=== PATIENT | female | born 1970 | race Caucasian/White ===

== ENCOUNTER 2019-09-28 11:59 | Observation (INO) | payer SELFPAY ==
[2019-09-28 12:57] LABS: MEAN CORPUSCULAR HEMOGLOBIN 29.7 pg (27.0-33.4); MEAN CORPUSCULAR HGB CONC 30.3 g/dL (32.0-36.0); MEAN CORPUSCULAR VOLUME 98 fl (80-97); RED BLOOD COUNT 1.05 10^6/uL (3.72-5.28); RED CELL DISTRIBUTION WIDTH 17.5 % (11.5-14.0); WHITE BLOOD COUNT 12.4 10^3/uL (4.0-10.5)
[2019-09-28] MEDS ORDERED: NORMAL SALINE 1000 ML 1,000 ML IV ONE (13:05)
[2019-09-28] MEDS ORDERED: MEDROXYPROGESTERONE ACET INJ 150 MG/1 ML VIAL IM ONE (13:09)
--- NOTE | 2019-09-28 13:11 | ER Document Report ---
ED GI/ - General Chief Complaint: Vaginal Bleeding Stated Complaint: VAGINAL BLEEDING Time Seen by Provider: 09/28/19 12:36 Mode of Arrival: Medic Information source: Patient Notes: Patient is a 49-year-old female patient presented to the emergency department chief complaint vaginal bleeding. Patient reports intermittent vaginal bleeding over the last 6 weeks. Patient reports over the last 2 days it has gotten severe. She states she passed out this morning. 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 She denies any known history of FA[employer] L[employer]INEER problems. She does have a history of asthma, allergies, bipolar, depression, panic attacks. EMS reports they found her on the toilet with the toilet full of blood. She denies any chest pain or shortness of breath. She states that she feels so weak she feels like she is going to . - Related Data Allergies/Adverse Reactions: NSAIDS (Non-Steroidal Anti-Inflamma Allergy (Severe, Verified 09/28/19 12:30) ciprofloxacin [From Cipro] Allergy (Verified 09/28/19 12:30) Sulfa (Sulfonamide Antibiotics) Adverse Reaction (Verified 09/28/19 12:30) Past Medical History - General Information source: Patient - Social History Smoking Status: Never Smoker Family History: Reviewed & Not Pertinent - She does not Patient has suicidal ideation: No Patient has homicidal ideation: No Pulmonary Medical History: Reports: Hx Asthma Psychiatric Medical History: Reports: Hx Anxiety, Hx Bipolar Disorder, Other - Panic disorder Surgical Hx: Negative Review of Systems - Review of Systems Constitutional: Malaise, Weakness Cardiovascular: No symptoms reported Respiratory: No symptoms reported Gastrointestinal: Nausea Genitourinary: No symptoms reported Female Genitourinary: Vaginal bleeding - Heavy Musculoskeletal: No symptoms reported Skin: No symptoms reported Neurological/Psychological: Anxiety Physical Exam - Vital signs Vitals: Temp Pulse Resp BP Pulse Ox 98.1 F 126 H 22 H 104/88 H 100 09/28/19 12:14 09/28/19 12:14 09/28/19 12:14 09/28/19 12:14 09/28/19 12:14 - Notes Notes: PHYSICAL EXAMINATION: GENERAL: Ill-appearing. HEAD: Atraumatic, normocephalic. EYES: Pupils equal round and reactive to light, extraocular movements intact, conjunctiva are normal. ENT: Nares patent, oropharynx clear without exudates. Moist mucous membranes. NECK: Normal range of motion, supple without lymphadenopathy LUNGS: Breath sounds clear to auscultation bilaterally and equal. No wheezes rales or rhonchi. HEART: Tachycardic ABDOMEN: Soft, nontender, nondistended abdomen. No guarding, no rebound. No masses appreciated. Female : No CVA tenderness. Musculoskeletal: Normal range of motion, no pitting or edema. No cyanosis. NEUROLOGICAL: Cranial nerves grossly intact. Normal speech. Normal sensory, motor exams PSYCH: Normal mood, normal affect. SKIN: Pale Course - Re-evaluation Re-evalutation: Lab called with preliminary hemoglobin of 3.1, hematocrit 10.3, orders placed for emergency release PRBCs x2 units. Pelvic exam was performed, patient has l arge clots in the vaginal vault, most of the clots were removed, small trickle of blood coming from the cervix. 09/28/19 13:11 Dr. Turpin consulted, she recommends giving patient Depo-Provera 300 mg. 09/28/19 14:00 Multiple re-evaluations have been done on this patient. She has continued to have blood transfusions infusing. Currently heart rate is down to 91, blood pressure holding steady at 119/67. Patient remains alert, oriented, able to answer all questions. She continues to be very anxious about her state of health. 09/28/19 15:15 Patient accepted for admission by Dr. Turpin. - Vital Signs Vital signs: Temp Pulse Resp BP Pulse Ox 98.2 F 100 19 107/75 100 09/28/19 14:25 09/28/19 14:25 09/28/19 14:31 09/28/19 14:31 09/28/19 14:31 - Laboratory Result Diagrams: 09/28/19 12:25 09/28/19 12:25 Laboratory results interpreted by me: 09/28/19 09/28/19 09/28/19 12:25 12:25 12:25 WBC 12.4 H RBC 1.05 L Hgb 3.1 L* Hct 10.3 L* MCV 98 H MCHC 30.3 L RDW 17.5 H Seg Neuts % (Manual) 96 H Lymphocytes % (Manual) 1 L Abs Neuts (Manual) 11.9 H Abs Lymphs (Manual) 0.1 L APTT Sodium 135.3 L Glucose 127 H Alkaline Phosphatase 37 L Total Protein 5.3 L Albumin 2.9 L Viola Crossmatch See Detail 09/28/19 09/28/19 12:55 12:55 WBC RBC Hgb Hct MCV MCHC RDW Seg Neuts % (Manual) Lymphocytes % (Manual) Abs Neuts (Manual) Abs Lymphs (Manual) APTT 20.8 L Sodium Glucose Alkaline Phosphatase Total Protein Albumin Viola 0.4 L Crossmatch Discharge - Discharge Clinical Impression: Vaginal bleeding Fibroid, uterine Qualifiers: Uterine leiomyoma location: unspecified location Qualified Code(s): D25.9 - Leiomyoma of uterus, unspecified Anemia Qualifiers: Anemia type: unspecified type Qualified Code(s): D64.9 - Anemia, unspecified Condition: Fair Disposition: ADMITTED INPATIENT Admitting Provider: [facility] - Dr. Turpin Unit Admitted: Post
[2019-09-28 13:17] LABS: ALBUMIN 2.9 g/dL (3.5-5.0); ALKALINE PHOSPHATASE 37 U/L (38-126); ANION GAP 9 (5-19); ASPARTATE AMINO TRANSFERASE 14 U/L (14-36); BILIRUBIN,DIRECT 0.1 mg/dL (0.0-0.4); BILIRUBIN,TOTAL 0.2 mg/dL (0.2-1.3); BLOOD UREA NITROGEN 9 mg/dL (7-20); CALCIUM 8.4 mg/dL (8.4-10.2); CARBON DIOXIDE 23 mmol/L (22-30); CHLORIDE 103 mmol/L (98-107); GLUCOSE 127 mg/dL (75-110); POTASSIUM 3.7 mmol/L (3.6-5.0); TOTAL PROTEIN 5.3 g/dL (6.3-8.2)
[2019-09-28 13:26] LABS: PROTHROMBIN TIME 14.2 SEC (11.4-15.4)
[2019-09-28 13:27] LABS: PARTIAL THROMBOPLASTIN TIME 20.8 SEC (23.5-35.8)
[2019-09-28 13:29] LABS: ABSOLUTE LYMPHOCYTES# (MANUAL) 0.1 10^3/uL (0.5-4.7); ABSOLUTE MONOCYTES # (MANUAL) 0.4 10^3/uL (0.1-1.4); BASOPHILS % (MANUAL) 0 % (0-2); EOSINOPHILS % (MANUAL) 0 % (0-6); LYMPHOCYTES % (MANUAL) 1 % (13-45); MONOCYTES % (MANUAL) 3 % (3-13); SEGMENTED NEUTROPHILS % (MAN) 96 % (42-78); TOTAL CELLS COUNTED 100
[2019-09-28 13:32] LABS: ANISOCYTOSIS 1+; HYPOCHROMASIA 1+; POLYCHROMASIA 1+; TEAR DROP CELLS 1+
[2019-09-28 13:33] LABS: TOXIC GRANULATION SLIGHT
[2019-09-28 13:34] LABS: PLATELET COMMENT ADEQUATE
[2019-09-28 13:36] LABS: HEMOGLOBIN 3.1 g/dL (12.0-15.5)
[2019-09-28 13:37] LABS: HEMATOCRIT 10.3 % (36.0-47.0)
[2019-09-28 13:38] LABS: PLATELET COUNT 356 10^3/uL (150-450)
[2019-09-28] MEDS: NORMAL SALINE 250 ML IV PRN ×4 (13:50→15:25)
--- NOTE | 2019-09-28 14:35 | RADIOLOGY REPORT (SQ) ---
EXAM DESCRIPTION: U/S NON-OB PELVIS TV W/O DOP COMPLETED DATE/TIME: 09/28/2019 2:10 pm REASON FOR STUDY: vag bleed COMPARISON: None. TECHNIQUE: Dynamic and static grayscale images acquired of the pelvis via transvaginal approach and recorded on PACS. Additional selected color Doppler and spectral images recorded. LIMITATIONS: None. FINDINGS: UTERUS: Contour normal. No mass. ENDOMETRIAL STRIPE: No focal or generalized thickening. No masses. CERVIX: There is a 4.4 x 4.3 x 4.0 cm mass in the lower urine segment upper cervix. This is heteroge neous most likely represents a fibroid. There is vascular flow demonstrated. RIGHT OVARY AND DOPPLER: Normal size. No worrisome masses. Normal arterial vascular flow without evid ence for torsion. There is a 2.7 x 2.7 x 3.2 cm simple cyst. LEFT OVARY AND DOPPLER: Ovary not visualized. FREE FLUID: None noted. OTHER: No other significant finding. MEASUREMENTS: UTERUS: 8.1 x 4.3 x 3.9 cm. ENDOMETRIAL STRIPE: 4.3 mm. RIGHT OVARY: 4.4 x 4.4 x 3.3 cm. LEFT OVARY: Not visualized. IMPRESSION: 4.4 x 4.3 x 4.0 cm mass in the lower ureter segment upper cervix. This could represent fibroid. Other etiologies cannot be excluded. TECHNICAL DOCUMENTATION: JOB ID: [id number] [employer]- All Rights Reserved Rev Reading location - IP/workstation name: [email or web address]
[2019-09-28] MEDS ORDERED: NORMAL SALINE 250 ML IV ONE (14:49)
[2019-09-28 16:57] LABS: APPEARANCE,URINE CLEAR; BILIRUBIN,URINE NEGATIVE (NEGATIVE); COLOR,URINE YELLOW; GLUCOSE, URINE NEGATIVE (NEGATIVE); KETONES,URINE NEGATIVE (NEGATIVE); LEUKOCYTE ESTERASE,URINE MODERATE (NEGATIVE); NITRITE,URINE NEGATIVE (NEGATIVE); PROTEIN,URINE NEGATIVE (NEGATIVE); URINE SPECIFIC GRAVITY 1.008; UROBILINOGEN,URINE NEGATIVE mg/dL (<2.0)
[2019-09-28] MEDS ORDERED: TRAMADOL HCL 50 MG TABLET PO PRN (19:44)
--- NOTE | 2019-09-28 19:44 | PDOC H&P ---
History of Present Illness Admission Date/PCP: 09/28/19 15:46 Patient complains of: Heavy vaginal bleeding for several weeks History of Present Illness: NII SCHMIDT is a 49 year old G0 presented to [facility] ED complaining of prolonged, heavy vaginal bleeding. Patient stated that she passed out today. She called EMS, who found her sitting on the toilet. The toilet was full of blood. This patient gives history of having regular menstrual cycles until approximately 2017. Her periods remained regular but became very heavy. She had a history of having a very heavy menstrual cycle, then skipping a few periods and then having another very heavy menstrual cycle. She started taking iron and felt better. On August 19, the bleeding started and has not stopped yet. Patient stated that she used OCPs as a teenager. She has not had a Pap smear since 2006. She subsequently underwent a pelvic ultrasound which showed a 4 x 4 x 4 cm fibroid in the lower uterine segment. She also has a 2.7 x 2.7 x 3.2 cm right, simple ovarian cyst Past Medical History LMP: August 19 Gynecological Infection: No Gynecological History Note: Last Pap smear 2006 Pulmonary Medical History: Reports: Asthma Psychiatric Medical History: Reports: Bipolar Disorder, Other - Panic disorder Past Surgical History Past Surgical History: Reports: None Social History Smoking Status: Never Smoker Electronic Cigarette use?: No Frequency of Alcohol Use: Occasional Hx Recreational Drug Use: No Family History Family History: Reviewed & Not Pertinent - She does not Parental Family History Reviewed: Yes Children Family History Reviewed: NA Sibling(s) Family History Reviewed.: NA Medication/Allergy Home Medications: Albuterol Sulfate [Proair HFA Inhalation Aerosol 8.5 gm MDI] 1 inh PO Q6HP PRN 09/28/19 Fluticasone Propionate [Flonase Nasal [place] 50 Mcg/[place] 16 gm] 1 spray NASL DAILY 09/28/19 [place] Carbonate [[place] Carbonate ER 450 mg Tablet] 450 mg PO BID 09/28/19 Mometasone Furoate [Asmanex Hfa] 13 gm IH QHS 09/28/19 Allergies/Adverse Reactions: NSAIDS (Non-Steroidal Anti-Inflamma Allergy (Severe, Verified 09/28/19 12:30) ciprofloxacin [From Cipro] Allergy (Verified 09/28/19 12:30) Sulfa (Sulfonamide Antibiotics) Adverse Reaction (Verified 09/28/19 12:30) Review of Systems Constitutional: PRESENT: as per HPI Cardiovascular: PRESENT: dyspnea on exertion, other - Palpitations Respiratory: PRESENT: dyspnea Gastrointestinal: PRESENT: other - Cramping Psychiatric: PRESENT: other - Bipolar Physical Exam - Physical Exam Vital Signs: Temp Pulse Resp BP Pulse Ox 98.4 F 90 19 123/73 100 09/28/19 15:20 09/28/19 15:30 09/28/19 16:33 09/28/19 16:33 09/28/19 16:33 Intake & Output 09/27/19 09/28/19 09/29/19 06:59 06:59 06:59 Intake Total 3450 Balance 3450 Weight 81.647 kg General appearance: PRESENT: no acute distress Respiratory exam: PRESENT: clear to auscultation vinny Cardiovascular exam: PRESENT: RRR, tachycardia GI/Abdominal exam: PRESENT: normal bowel sounds, soft Extremities exam: ABSENT: calf tenderness, clubbing, full ROM, joint swelling, pedal edema, tenderness, +1 edema, +2 edema, other - Gynecological Exam Vagina: normal, other - Bleeding is slowing down Result Laboratory Results: 09/28/19 12:25 09/28/19 12:25 09/28/19 09/28/19 09/28/19 12:25 12:25 12:25 WBC 12.4 H RBC 1.05 L Hgb 3.1 L* Hct 10.3 L* MCV 98 H MCH 29.7 MCHC 30.3 L RDW 17.5 H Plt Count 356 Seg Neutrophils % Not Reportable Sodium 135.3 L Potassium 3.7 Chloride 103 Carbon Dioxide 23 Anion Gap 9 BUN 9 Creatinine 0.68 Est GFR ( Amer) > 60 Glucose 127 H Calcium 8.4 Total Bilirubin 0.2 AST 14 Alkaline Phosphatase 37 L Total Protein 5.3 L Albumin 2.9 L Urine Color Urine Appearance Urine pH Ur Specific [place] Urine Protein Urine Glucose (UA) Urine Ketones Urine Blood Urine Nitrite Ur Leukocyte Esterase Urine WBC (Auto) Urine RBC (Auto) Blood Type O POSITIVE Antibody Screen NEGATIVE 09/28/19 16:22 WBC RBC Hgb Hct MCV MCH MCHC RDW Plt Count Seg Neutrophils % Sodium Potassium Chloride Carbon Dioxide Anion Gap BUN Creatinine Est GFR ( Amer) Glucose Calcium Total Bilirubin AST Alkaline Phosphatase Total Protein Albumin Urine Color YELLOW Urine Appearance CLEAR Urine pH 6.0 Ur Specific [place] 1.008 Urine Protein NEGATIVE Urine Glucose (UA) NEGATIVE Urine Ketones NEGATIVE Urine Blood LARGE H Urine Nitrite NEGATIVE Ur Leukocyte Esterase MODERATE H Urine WBC (Auto) 18 Urine RBC (Auto) 142 Blood Type Antibody Screen Impressions: Transvaginal US 09/28/19 13:09 IMPRESSION: 4.4 x 4.3 x 4.0 cm mass in the lower ureter segment upper cervix. This could represent fibroid. Other etiologies cannot be excluded. Assessment & Plan - Diagnosis (1) Irregular menses Is this a current diagnosis for this admission?: Yes (2) Anemia Qualifiers: Anemia type: iron deficiency Iron deficiency anemia type: chronic blood loss Qualified Code(s): D50.0 - Iron deficiency anemia secondary to blood loss (chronic) (3) Fibroid, uterine Qualifiers: Uterine leiomyoma location: intramural Qualified Code(s): D25.1 - Intramural leiomyoma of uterus (4) Vaginal bleeding Is this a current diagnosis for this admission?: Yes (5) Asthma Qualifiers: Asthma severity: moderate Is this a current diagnosis for this admission?: Yes (6) Bipolar 1 disorder with moderate dimas Is this a current diagnosis for this admission?: Yes - Time Time Spent: 30 to 50 Minutes Critical Time spent with patient: 15-24 minutes Medications reviewed and adjusted accordingly: Yes Anticipated discharge: Home Within: within 24 hours - Inpatient Certification I certify that my determination is in accordance with my understanding of Medicare's requirements for reasonable and necessary INPATIENT services [42 CFR 412.3e].: Yes Medical Necessity: Need Close Monitoring Due to Risk of Patient Decompensation - Need to watch vaginal bleeding overnight, Need For IV Fluids, Need for Pain Control - Plan Summary Plan Summary: 1. 1 L IV fluid bolus 2. Pad count 3. Regular diet 4. CBC in a.m. 5. Anticipate discharge tomorrow
[2019-09-28] MEDS ORDERED: RINGERS SOLUTION,LACTATED 1,000 ML IV ONE (20:45)
--- NOTE | 2019-09-28 21:59 | EKG REPORT ---
SEVERITY:- ABNORMAL ECG - SINUS TACHYCARDIA NONSPECIFIC REPOL ABNORMALITY, LATERAL LEADS : Confirmed by: Lucio Patiño MD 28-Sep-2019 21:58:35
[2019-09-28] MEDS ORDERED: IRON SUCROSE COMPLEX INJ/PF 100 MG/5 ML SDV IV ONE (22:00)
[2019-09-28] MEDS ORDERED: LITHIUM CARBONATE 450 MG TABLET.ER PO ONE (22:30)
[2019-09-29] MEDS ORDERED: ACETAMINOPHEN 325 MG TABLET ONE (00:59)
[2019-09-29] MEDS ORDERED: ACETAMINOPHEN 325 MG TABLET PO PRN (01:21)
[2019-09-29 06:37] LABS: ABSOLUTE LYMPHOCYTES (AUTO) 0.6 10^3/uL (0.5-4.7); ABSOLUTE MONOCYTES (AUTO) 0.5 10^3/uL (0.1-1.4); ABSOLUTE NEUT (AUTO) 4.1 10^3/uL (1.7-8.2); BASOPHILS % (AUTO) 0.1 % (0-2); EOSINOPHILS % (AUTO) 0.4 % (0-6); HEMATOCRIT 25.4 % (36.0-47.0); LYMPHOCYTES % (AUTO) 11.6 % (13-45); MEAN CORPUSCULAR HEMOGLOBIN 30.2 pg (27.0-33.4); MEAN CORPUSCULAR HGB CONC 33.5 g/dL (32.0-36.0); MONOCYTES % (AUTO) 10.2 % (3-13); PLATELET COUNT 196 10^3/uL (150-450); RED BLOOD COUNT 2.82 10^6/uL (3.72-5.28); RED CELL DISTRIBUTION WIDTH 17.6 % (11.5-14.0); SEGMENTED NEUTROPHILS % (AUTO) 77.7 % (42-78); TOTAL CELLS COUNTED % (AUTO) 100 %; WHITE BLOOD COUNT 5.3 10^3/uL (4.0-10.5)
[2019-09-29 06:40] LABS: HEMOGLOBIN 8.5 g/dL (12.0-15.5)
--- NOTE | 2019-09-29 07:01 | PDOC DISCHARGE SUMMARY ---
Impression - Admit/DC Date/PCP Admission Date/Primary Care Provider: 09/28/19 15:46 Discharge Date: 09/29/19 - Discharge Diagnosis (1) Irregular menses Is this a current diagnosis for this admission?: Yes (2) Anemia Is this a current diagnosis for this admission?: Yes (3) Fibroid, uterine Is this a current diagnosis for this admission?: Yes (4) Vaginal bleeding Is this a current diagnosis for this admission?: Yes (5) Asthma Is this a current diagnosis for this admission?: Yes (6) Bipolar 1 disorder with moderate dimas Is this a current diagnosis for this admission?: Yes (7) Transfusion of blood during current hospitalisation Is this a current diagnosis for this admission?: Yes - Additional Information Discharge Diet: As Tolerated, Regular Discharge Activity: Activity As Tolerated, Slowly Increase Activity Home Medications: Albuterol Sulfate [Proair HFA Inhalation Aerosol 8.5 gm MDI] 1 inh PO Q6HP PRN 09/28/19 Fluticasone Propionate [Flonase Nasal [place] 50 Mcg/[place] 16 gm] 1 spray NASL DAILY 09/28/19 [place] Carbonate [[place] Carbonate ER 450 mg Tablet] 450 mg PO BID 09/28/19 Mometasone Furoate [Asmanex Hfa] 13 gm IH QHS 09/28/19 History of Present Illiness History of Present Illness: NII SCHMIDT is a 49 year old G0 presented to [facility] ED complaining of prolonged, heavy vaginal bleeding. Patient stated that she passed out today. She called EMS, who found her sitting on the toilet. The toilet was full of blood. This patient gives history of having regular menstrual cycles until approximately 2016. Her periods remained regular but became very heavy. She had a history of having a very heavy menstrual cycle, then skipping a few periods and then having another very heavy menstrual cycle. She started taking iron and felt better. On August 19, the bleeding started and has not stopped yet. Patient stated that she used OCPs as a teenager. She has not had a Pap smear since 2006. She subsequently underwent a pelvic ultrasound which showed a 4 x 4 x 4 cm fibroid in the lower uterine segment. She also has a 2.7 x 2.7 x 3.2 cm right, simple ovarian cyst Hospital Course Hospital Course: The hospital course was essentially uneventful. After her injection of Depo Provera 300 mg IM, she only had scant bleeding whenever she got up to void. She is ambulating and voiding without difficulty. Patient denies chest pain, shortness of breath, fever/chills and nausea/vomiting. After her blood transfusion of 4 units of packed red blood cells, her hemoglobin is now 8.5. She also received IV Venofer. Physical Exam - Physical Exam Vital Signs: Temp Pulse Resp BP Pulse Ox 97.7 F 95 17 105/59 L 100 09/29/19 04:00 09/29/19 04:00 09/29/19 04:00 09/29/19 04:00 09/29/19 04:00 Intake & Output 09/27/19 09/28/19 09/29/19 06:59 06:59 06:59 Intake Total 4200 Output Total 2450 Balance 1750 Weight 78.9 kg General appearance: PRESENT: no acute distress Respiratory exam: PRESENT: clear to auscultation vinny Cardiovascular exam: PRESENT: RRR GI/Abdominal exam: PRESENT: normal bowel sounds, soft Extremities exam: ABSENT: calf tenderness, clubbing, full ROM, joint swelling, pedal edema, tenderness, +1 edema, +2 edema, other - Gynecological Exam Vagina: normal - Scant bleeding, other - Bleeding is slowing down Results Laboratory Results: WBC 5.3 10^3/uL (4.0-10.5) 09/29/19 06:10 RBC 2.82 10^6/uL (3.72-5.28) L 09/29/19 06:10 Hgb 8.5 g/dL (12.0-15.5) L D 09/29/19 06:10 Hct 25.4 % (36.0-47.0) L 09/29/19 06:10 MCV 98 fl (80-97) H 09/28/19 12:25 MCH 30.2 pg (27.0-33.4) 09/29/19 06:10 MCHC 33.5 g/dL (32.0-36.0) 09/29/19 06:10 RDW 17.6 % (11.5-14.0) H 09/29/19 06:10 Plt Count 196 10^3/uL (150-450) 09/29/19 06:10 Lymph % (Auto) 11.6 % (13-45) L 09/29/19 06:10 [place] % (Auto) 10.2 % (3-13) 09/29/19 06:10 Eos % (Auto) 0.4 % (0-6) 09/29/19 06:10 Baso % (Auto) 0.1 % (0-2) 09/29/19 06:10 Absolute Neuts (auto) 4.1 10^3/uL (1.7-8.2) 09/29/19 06:10 Absolute Lymphs (auto) 0.6 10^3/uL (0.5-4.7) 09/29/19 06:10 Absolute Monos (auto) 0.5 10^3/uL (0.1-1.4) 09/29/19 06:10 Absolute Eos (auto) 0.0 10^3/uL (0.0-0.6) 09/29/19 06:10 Absolute Basos (auto) 0.0 10^3/uL (0.0-0.2) 09/29/19 06:10 Total Counted 100 09/28/19 12:25 Seg Neutrophils % 77.7 % (42-78) 09/29/19 06:10 Seg Neuts % (Manual) 96 % (42-78) H 09/28/19 12:25 Lymphocytes % (Manual) 1 % (13-45) L 09/28/19 12:25 Monocytes % (Manual) 3 % (3-13) 09/28/19 12:25 Eosinophils % (Manual) 0 % (0-6) 09/28/19 12:25 Basophils % (Manual) 0 % (0-2) 09/28/19 12:25 Abs Neuts (Manual) 11.9 10^3/uL (1.7-8.2) H 09/28/19 12:25 Abs Lymphs (Manual) 0.1 10^3/uL (0.5-4.7) L 09/28/19 12:25 Abs Monocytes (Manual) 0.4 10^3/uL (0.1-1.4) 09/28/19 12:25 Absolute Eos (Manual) 0.0 10^3/uL (0.0-0.6) 09/28/19 12:25 Abs Basophils (Manual) 0.0 10^3/uL (0.0-0.2) 09/28/19 12:25 Toxic Granulation SLIGHT 09/28/19 12:25 Platelet Comment ADEQUATE 09/28/19 12:25 Polychromasia 1+ 09/28/19 12:25 Hypochromasia 1+ 09/28/19 12:25 Basophilic Stippling PRESENT 09/28/19 12:25 Anisocytosis 1+ 09/28/19 12:25 Macrocytosis SLIGHT 09/28/19 12:25 Tear Drop Cells 1+ 09/28/19 12:25 PT 14.2 SEC (11.4-15.4) 09/28/19 12:55 INR 1.10 09/28/19 12:55 APTT 20.8 SEC (23.5-35.8) L 09/28/19 12:55 Sodium 135.3 mmol/L (137-145) L 09/28/19 12:25 Potassium 3.7 mmol/L (3.6-5.0) 09/28/19 12:25 Chloride 103 mmol/L (98-107) 09/28/19 12:25 Carbon Dioxide 23 mmol/L (22-30) 09/28/19 12:25 Anion Gap 9 (5-19) 09/28/19 12:25 BUN 9 mg/dL (7-20) 09/28/19 12:25 Creatinine 0.68 mg/dL (0.52-1.25) 09/28/19 12:25 Est GFR ( Amer) > 60 (>60) 09/28/19 12:25 Est GFR (MDRD) Non-Af > 60 (>60) 09/28/19 12:25 Glucose 127 mg/dL (75-110) H 09/28/19 12:25 Calcium 8.4 mg/dL (8.4-10.2) 09/28/19 12:25 Total Bilirubin 0.2 mg/dL (0.2-1.3) 09/28/19 12:25 Direct Bilirubin 0.1 mg/dL (0.0-0.4) 09/28/19 12:25 Neonat Total Bilirubin Not Reportable 09/28/19 12:25 Neonat Direct Bilirubin Not Reportable 09/28/19 12:25 Neonat Indirect Bili Not Reportable 09/28/19 12:25 AST 14 U/L (14-36) 09/28/19 12:25 ALT 10 U/L (<35) 09/28/19 12:25 Alkaline Phosphatase 37 U/L (38-126) L 09/28/19 12:25 Total Protein 5.3 g/dL (6.3-8.2) L 09/28/19 12:25 Albumin 2.9 g/dL (3.5-5.0) L 09/28/19 12:25 Urine Color YELLOW 09/28/19 16:22 Urine Appearance CLEAR 09/28/19 16:22 Urine pH 6.0 (5.0-9.0) 09/28/19 16:22 Ur Specific [place] 1.008 09/28/19 16:22 Urine Protein NEGATIVE mg/dL (NEGATIVE) 09/28/19 16:22 Urine Glucose (UA) NEGATIVE mg/dL (NEGATIVE) 09/28/19 16:22 Urine Ketones NEGATIVE mg/dL (NEGATIVE) 09/28/19 16:22 Urine Blood LARGE (NEGATIVE) H 09/28/19 16:22 Urine Nitrite NEGATIVE (NEGATIVE) 09/28/19 16:22 Urine Bilirubin NEGATIVE (NEGATIVE) 09/28/19 16:22 Urine Urobilinogen NEGATIVE mg/dL (<2.0) 09/28/19 16:22 Ur Leukocyte Esterase MODERATE (NEGATIVE) H 09/28/19 16:22 Urine WBC (Auto) 18 /HPF 09/28/19 16:22 Urine RBC (Auto) 142 /HPF 09/28/19 16:22 Squamous Epi Cells Auto 1 /HPF 09/28/19 16:22 Urine Ascorbic Acid NEGATIVE (NEGATIVE) 09/28/19 16:22 [place] 0.4 mEq/L (0.6-1.2) L 09/28/19 12:55 Blood Type O POSITIVE 09/28/19 12:25 Antibody Screen NEGATIVE 09/28/19 12:25 Crossmatch See Detail 09/28/19 12:25 Impressions: Transvaginal US 09/28/19 13:09 IMPRESSION: 4.4 x 4.3 x 4.0 cm mass in the lower ureter segment upper cervix. This could represent fibroid. Other etiologies cannot be excluded. Plan Plan of Treatment: 1. Discharge home 2. Prescription for ferrous sulfate 3. Patient instructed to take vitamin C with her iron 4. Patient instructed to follow-up in the office in 2 weeks or sooner if needed Stroke Is this a Stroke Patient?: No Acute Heart Failure - Is this a Heart Failure Patient?: No
[2019-09-29 07:31] LABS: MEAN CORPUSCULAR VOLUME 90 fl (80-97)
[2019-09-29 08:39] VITALS: BP 111/58
[2019-09-29] MEDS ORDERED: LITHIUM CARBONATE 450 MG TABLET.ER PO SCH (10:00)
[2019-10-01 13:56] LABS: PATH REVIEW PATHOLOGIST REVIEWED
== END 2019-09-29 09:50 | disposition home or self-care (01) ==
LOC: ER 11:59 → INTOOBSV 15:46 → EH 15:46 → 2N 16:55
PROVIDERS: ADMIT Obstetrics & Gynecology; ATTEND Obstetrics & Gynecology
DX: N92.5 Other specified irregular menstruation (principal); D50.0 Iron deficiency anemia secondary to blood loss (chronic); D25.1 Intramural leiomyoma of uterus; J45.998 Other asthma; F31.89 Other bipolar disorder; N83.291 Other ovarian cyst, right side; R55 Syncope and collapse; F41.9 Anxiety disorder, unspecified
CPT/HCPCS: 93005; 99285; 96372; 96360; 96361; 86900; 86901; 36415 ×2; 36430; 86850; 80178; 85025 ×2; 85610; 85730; 80053; 81001; 86920; 76830; 93010; G0378 ×3; P9016; J1756; J1050; J7030; J7050; J7120

== ENCOUNTER 2019-09-29 19:56 | Emergency (ER) | payer SELFPAY ==
[2019-09-29 21:03] LABS: ABSOLUTE LYMPHOCYTES (AUTO) 0.4 10^3/uL (0.5-4.7); ABSOLUTE MONOCYTES (AUTO) 0.5 10^3/uL (0.1-1.4); ABSOLUTE NEUT (AUTO) 5.7 10^3/uL (1.7-8.2); BASOPHILS % (AUTO) 0.1 % (0-2); EOSINOPHILS % (AUTO) 0.6 % (0-6); HEMATOCRIT 25.2 % (36.0-47.0); HEMOGLOBIN 8.4 g/dL (12.0-15.5); LYMPHOCYTES % (AUTO) 6.2 % (13-45); MEAN CORPUSCULAR HEMOGLOBIN 29.9 pg (27.0-33.4); MEAN CORPUSCULAR HGB CONC 33.1 g/dL (32.0-36.0); MEAN CORPUSCULAR VOLUME 90 fl (80-97); MONOCYTES % (AUTO) 7.4 % (3-13); PLATELET COUNT 245 10^3/uL (150-450); RED BLOOD COUNT 2.79 10^6/uL (3.72-5.28); RED CELL DISTRIBUTION WIDTH 17.9 % (11.5-14.0); SEGMENTED NEUTROPHILS % (AUTO) 85.7 % (42-78); TOTAL CELLS COUNTED % (AUTO) 100 %; WHITE BLOOD COUNT 6.7 10^3/uL (4.0-10.5)
--- NOTE | 2019-09-29 21:22 | ER Document Report ---
ED GI/ - General Chief Complaint: Vaginal Bleeding Stated Complaint: VAGINAL BLEEDING Time Seen by Provider: 09/29/19 20:16 Mode of Arrival: Ambulatory Information source: Patient Notes: 49-year-old patient presents emergency department chief complaint of vaginal bleeding. Patient was seen in this emergency department yesterday for the same complaint, she had a hemoglobin of 3.1, she subsequently received 4 units of packed red blood cells. She states she was discharged from the hospital this morning. She states that she was told to return to the emergency department with any increased vaginal bleeding. She states that this evening she bled through more than 3 pads in 1 hour. TRAVEL OUTSIDE OF THE [place] IN LAST 30 DAYS: No - Related Data Allergies/Adverse Reactions: NSAIDS (Non-Steroidal Anti-Inflamma Allergy (Severe, Verified 09/28/19 12:30) ciprofloxacin [From Cipro] Allergy (Verified 09/28/19 12:30) Sulfa (Sulfonamide Antibiotics) Adverse Reaction (Verified 09/28/19 12:30) Past Medical History - General Information source: Patient - Social History Smoking Status: Never Smoker Family History: Reviewed & Not Pertinent - She does not Pulmonary Medical History: Reports: Hx Asthma, Hx Pneumonia Psychiatric Medical History: Reports: Hx Anxiety, Hx Bipolar Disorder Surgical Hx: Negative - Immunizations Immunizations up to date: No Review of Systems - Review of Systems Constitutional: No symptoms reported EENT: No symptoms reported Cardiovascular: No symptoms reported Respiratory: No symptoms reported Gastrointestinal: No symptoms reported Genitourinary: No symptoms reported Female Genitourinary: Vaginal bleeding Musculoskeletal: No symptoms reported Skin: No symptoms reported Hematologic/Lymphatic: No symptoms reported Neurological/Psychological: No symptoms reported Physical Exam - Vital signs Vitals: Temp Pulse Resp BP Pulse Ox 98.2 F 103 H 18 151/68 H 100 09/29/19 20:01 09/29/19 20:01 09/29/19 20:01 09/29/19 20:01 09/29/19 20:01 - Notes Notes: PHYSICAL EXAMINATION: GENERAL: Well-appearing, well-nourished and in no acute distress. HEAD: Atraumatic, normocephalic. EYES: Pupils equal round and reactive to light, extraocular movements intact, conjunctiva are normal. ENT: Nares patent, oropharynx clear without exudates. Moist mucous membranes. NECK: Normal range of motion, supple without lymphadenopathy LUNGS: Breath sounds clear to auscultation bilaterally and equal. No wheezes rales or rhonchi. HEART: Regular rate and rhythm without murmurs ABDOMEN: Soft, nontender, nondistended abdomen. No guarding, no rebound. No masses appreciated. Female : Large clots coming from vagina, mild to moderate bleeding noted. Musculoskeletal: Normal range of motion, no pitting or edema. No cyanosis. NEUROLOGICAL: Cranial nerves grossly intact. Normal speech, normal gait. N ormal sensory, motor exams PSYCH: Normal mood, normal affect. SKIN: Warm, Dry, normal turgor, no rashes or lesions noted. Course - Re-evaluation Re-evalutation: 09/29/19 21:20 Laboratory 09/29/19 20:35 WBC 6.7 RBC 2.79 L Hgb 8.4 L Hct 25.2 L MCV 90 MCH 29.9 MCHC 33.1 RDW 17.9 H Plt Count 245 Lymph % (Auto) 6.2 L Frio % (Auto) 7.4 Eos % (Auto) 0.6 Baso % (Auto) 0.1 Absolute Neuts (auto) 5.7 Absolute Lymphs (auto) 0.4 L Absolute Monos (auto) 0.5 Absolute Eos (auto) 0.0 Absolute Basos (auto) 0.0 Seg Neutrophils % 85.7 H Consulted [employer] television announcer, spoke with Dr. Jackman. She recommends giving patient IV Premarin 25 mg and starting patient on Estrace. Patient's vaginal bleeding has slowed. Patient remained stable, her heart rate is 106, she is normotensive. She will be discharged home with prescription for Estrace. She has been given ED return precautions. She has been given contact information for Dr. Jackman's office. She understands the need to call them Tuesday for follow-up. - Vital Signs Vital signs: Temp Pulse Resp BP Pulse Ox 98.2 F 103 H 18 112/53 L 100 09/29/19 20:26 09/29/19 20:26 09/29/19 21:01 09/29/19 21:01 09/29/19 20:26 - Laboratory Result Diagrams: 09/29/19 20:35 Laboratory results interpreted by me: 09/29/19 09/29/19 20:35 21:41 RBC 2.79 L Hgb 8.4 L Hct 25.2 L RDW 17.9 H Lymph % (Auto) 6.2 L Absolute Lymphs (auto) 0.4 L Seg Neutrophils % 85.7 H Urine Protein 100 H Urine Blood LARGE H Ur Leukocyte Esterase TRACE H Discharge - Discharge Clinical Impression: Vaginal bleeding Condition: Stable Disposition: HOME, SELF-CARE Additional Instructions: You were seen in the emergency department again for an episode of vaginal bleeding. You were given medications via IV to help with the bleeding. I called and spoke with Dr. Jackman who is the OB on-call who made these recommendations. Please take medication as prescribed, please take 1 tablet daily. Please call [facility] Tuesday morning to schedule a follow-up appointment, let them know you were recently discharge from the hospital and need to see them on Tuesday or Tuesday. It is very important that you follow-up with [facility]. Return to the emergency department with any new or worsening symptoms. Prescriptions: Estradiol [Estrace] 1 mg PO DAILY #7 tablet Referrals: CYRUS JACKMAN MD [ACTIVE STAFF] - Follow up as needed
[2019-09-29] MEDS: NORMAL SALINE 1000 ML 1,000 ML IV ONE ×2 (21:28→21:59)
[2019-09-29] MEDS ORDERED: ESTROGENS,CONJUGATED 25 MG VIAL IV ONE (22:04)
[2019-09-29] MEDS ORDERED: LORAZEPAM 1 MG TABLET PO ONE (22:05)
[2019-09-29 22:27] LABS: APPEARANCE,URINE SLIGHTLY-CLOUDY; BILIRUBIN,URINE NEGATIVE (NEGATIVE); COLOR,URINE RED; GLUCOSE, URINE NEGATIVE (NEGATIVE); KETONES,URINE NEGATIVE (NEGATIVE); LEUKOCYTE ESTERASE,URINE TRACE (NEGATIVE); NITRITE,URINE NEGATIVE (NEGATIVE); PROTEIN,URINE 100 mg/dL (NEGATIVE); URINE SPECIFIC GRAVITY 1.008; UROBILINOGEN,URINE NEGATIVE mg/dL (<2.0)
[2019-09-29] MEDS ORDERED: ESTROGENS,CONJUGATED 25 MG VIAL ONE (22:32)
[2019-09-29] MEDS ORDERED: ACETAMINOPHEN 325 MG TABLET PO ONE (23:29)
[2019-09-30 01:15] VITALS: BP 107/70
== END 2019-09-30 01:00 | disposition home or self-care (01) ==
LOC: ER 19:56
DX: N93.9 Abnormal uterine and vaginal bleeding, unspecified (principal); Z88.8 Allergy status to other drugs, medicaments and biological substances; Z88.1 Allergy status to other antibiotic agents; J45.909 Unspecified asthma, uncomplicated
CPT/HCPCS: 99283; 96374; 96375; 36415; 81001; J1410; J7030

== ENCOUNTER 2019-10-02 02:28 | Emergency (ER) | payer SELFPAY ==
--- NOTE | 2019-10-02 04:08 | ER Document Report ---
ED General - General Mode of Arrival: Medic Information source: Patient TRAVEL OUTSIDE OF THE [place] IN LAST 30 DAYS: No - Related Data Home Medications: ESTRADOL <EVELYN DAVIS - Last Filed: 10/02/19 06:26> <LEONORA TRAN - Last Filed: 10/02/19 13:37> - General Chief Complaint: Shortness Of Breath Stated Complaint: SHORTNESS OF BREATH Time Seen by Provider: 10/02/19 03:29 Primary Care Provider: DOMINIC MENJIVAR MD [ACTIVE STAFF] - Follow up as needed Notes: This 49-year-old woman presents to the emergency department with a history of seen on 2 prior occasions with heavy vaginal bleeding. Apparently has a uterine fibroid and heavy bleeding. On Tuesday she was seen and at that time transfused 4 units of blood and given Depo-Provera 300 mg IM. Patient states that she has continued to bleed and she returned to the emergency department 09/29 and 09/30 the hemoglobin was 8.5/25.4 and 8.5 and 35.3. She has continued to have episodic bleeding which she describes as heavy. She also describes cramping abdominal pain. (EVELYN DAVIS) - Related Data Allergies/Adverse Reactions: NSAIDS (Non-Steroidal Anti-Inflamma Allergy (Severe, Verified 10/02/19 03:26) ciprofloxacin [From Cipro] Allergy (Verified 10/02/19 03:26) Sulfa (Sulfonamide Antibiotics) Adverse Reaction (Verified 10/02/19 03:26) Past Medical History - Social History Smoking Status: Former Smoker Chew tobacco use (# tins/day): No Frequency of alcohol use: None Drug Abuse: None Family History: Reviewed & Not Pertinent - She does not Patient has suicidal ideation: No Patient has homicidal ideation: No Pulmonary Medical History: Reports: Hx Asthma, Hx Pneumonia Psychiatric Medical History: Reports: Hx Anxiety, Hx Bipolar Disorder - Immunizations Immunizations up to date: No <EVELYN DAVIS - Last Filed: 10/02/19 06:26> Review of Systems <EVELYN DAVIS - Last Filed: 10/02/19 06:26> - Review of Systems Notes: Constitutional: + Anxiety HENT: Negative for sore throat. Eyes: Negative for visual changes. Cardiovascular: Negative for chest pain. Respiratory: Negative for shortness of breath. Gastrointestinal: Negative for abdominal pain, vomiting or diarrhea. Genitourinary: See HPI Musculoskeletal: Negative for back pain. Skin: Negative for rash. Neurological: Negative for headaches, weakness or numbness. 10 point ROS negative except as marked above and in HPI. (EVELYN DAVIS) Physical Exam <EVELYN DAVIS - Last Filed: 10/02/19 06:26> - Vital signs Interpretation: Normal - General General appearance: Appears well, Alert - HEENT Head: Normocephalic, Atraumatic Eyes: Normal Pupils: PERRL - Respiratory Respiratory status: No respiratory distress Chest status: Nontender Breath sounds: Normal Chest palpation: Normal - Cardiovascular Rhythm: Tachycardia Heart sounds: Normal auscultation Murmur: No - Abdominal Inspection: Normal Distension: No distension Bowel sounds: Normal Tenderness: Nontender Organomegaly: No organomegaly - Back Back: Normal, Nontender - Extremities General upper extremity: Normal inspection, Nontender, Normal color, Normal ROM, Normal temperature General lower extremity: Normal inspection, Nontender, Normal color, Normal ROM, Normal temperature, Normal weight bearing. No: Rober's sign - Neurological Neuro grossly intact: Yes Cognition: Normal Orientation: AAOx4 [place] Coma Scale Eye Opening: Spontaneous [place] Coma Scale Verbal: Oriented [place] Coma Scale Motor: Obeys Commands [place] Coma Scale Total: 15 Speech: Normal Motor strength normal: LUE, RUE, LLE, RLE Sensory: Normal - Psychological Associated symptoms: Normal affect, Normal mood - Skin Skin Temperature: Warm Skin Moisture: Dry Skin Color: Pale <LEONORA TRAN - Last Filed: 10/02/19 13:37> - Vital signs Vitals: Temp Pulse Resp BP Pulse Ox 98.7 F 122 H 17 125/68 100 10/02/19 02:35 10/02/19 02:35 10/02/19 02:35 10/02/19 02:35 10/02/19 02:35 - Notes Notes: PHYSICAL EXAMINATION: Physical Exam: General: Well-nourished well-developed female in no acute distress HEENT: NC/AT, pupils equal round and reactive to light, MM moist,nares clear, Neck: supple, no adenopathy, no masses. Lungs: clear, no wheezing, no rales no rhonchi CVS: Regular rate and rhythm no murmur gallop or rub Abdomen: Soft active nontender, no masses, no hepatosplenomegaly Ext: No edema clubbing or cyanosis. Neuro: Alert and responsive, moving all 4 extremities on command, cranial nerves intact. Skin: Intact no open lesions, no rash PSYCH: Normal mood, normal affect. (EVELYN DAVIS) Course - Laboratory Result Diagrams: 10/02/19 03:13 <EVELYN DAVIS - Last Filed: 10/02/19 06:26> - Laboratory Result Diagrams: 10/02/19 12:46 <LEONORA TRAN - Last Filed: 10/02/19 13:37> - Re-evaluation Re-evalutation: 10/02/19 05:18 49-year-old woman with a uterine fibroid and metromenorrhagia, previously transfused with a hemoglobin of 8.5 09/29/2019. Now presents with a hemoglobin 4.0 and continued heavy bleeding. I have discussed the patient with on-call [facility], Dr. Menjivar he suggested patient be transfused 2 units, will use oral Provera 10 mg x 7 days and follow-up in the office. I discussed this plan with the patient and she acknowledges an understanding of the plan and is agreeable. (EVELYN DAVIS) 10/02/19 13:35 I assumed care of the patient approximately 7 AM. Throughout my stay she has received her blood and has had 2 meals and has been stable. Currently her blood pressure is 116 systolic. Her pulse is 98. I have called and talked with Dr. Gregorio. Patient is going to call the office and arrange for an appointment today before she leaves emergency department so that she does not have to return again. I have also been instructed by Dr. Gregorio to place the patient on 30 mg of Provera per day. (LEONORA TRAN) - Vital Signs Vital signs: Temp Pulse Resp BP Pulse Ox 97.8 F 101 H 18 107/54 L 100 10/02/19 11:28 10/02/19 11:30 10/02/19 12:31 10/02/19 12:31 10/02/19 12:31 - Laboratory Laboratory results interpreted by me: 10/02/19 10/02/19 10/02/19 04:12 04:12 08:51 RBC 1.61 L Hgb 4.8 L* D Hct 14.9 L* RDW 18.6 H Lymph % (Auto) Seg Neutrophils % Seg Neuts % (Manual) 91 H Band Neutrophils % 2 L Lymphocytes % (Manual) 3 L Abs Lymphs (Manual) 0.2 L Urine Protein 100 H Urine Blood LARGE H Ur Leukocyte Esterase MODERATE H Crossmatch See Detail 10/02/19 12:46 RBC 2.52 L Hgb 7.5 L D Hct 22.7 L RDW 18.0 H Lymph % (Auto) 9.4 L Seg Neutrophils % 79.5 H Seg Neuts % (Manual) Band Neutrophils % Lymphocytes % (Manual) Abs Lymphs (Manual) Urine Protein Urine Blood Ur Leukocyte Esterase Crossmatch Discharge <EVELYN DAVIS - Last Filed: 10/02/19 06:26> <LEONORA TRAN - Last Filed: 10/02/19 13:37> - Discharge Clinical Impression: Vaginal bleeding Anemia Qualifiers: Anemia type: other cause Other causes of anemia: acute posthemorrhagic Qualified Code(s): D62 - Acute posthemorrhagic anemia Fibroid, uterine Qualifiers: Uterine leiomyoma location: unspecified location Qualified Code(s): D25.9 - Leiomyoma of uterus, unspecified Condition: Fair Disposition: HOME, SELF-CARE Instructions: Menorrhagia ([facility]) Additional Instructions: Follow-up with [facility], please go to the office today after your transfusion has completed. Prescriptions: Medroxyprogesterone Acet [Provera 10 Mg Tablet] 10 mg PO DAILY #10 tablet Medroxyprogesterone Acet [Provera 10 Mg Tablet] 10 mg PO TID 10 Days #30 tablet Referrals: DOMINIC MENJIVAR MD [ACTIVE STAFF] - Follow up as needed
[2019-10-02 04:39] LABS: MEAN CORPUSCULAR HEMOGLOBIN 29.9 pg (27.0-33.4); MEAN CORPUSCULAR HGB CONC 32.5 g/dL (32.0-36.0); MEAN CORPUSCULAR VOLUME 92 fl (80-97); PLATELET COUNT 220 10^3/uL (150-450); RED BLOOD COUNT 1.61 10^6/uL (3.72-5.28); RED CELL DISTRIBUTION WIDTH 18.6 % (11.5-14.0); WHITE BLOOD COUNT 5.6 10^3/uL (4.0-10.5)
[2019-10-02] MEDS ORDERED: NORMAL SALINE 250 ML IV PRN (05:16)
[2019-10-02 06:28] LABS: HEMATOCRIT 14.9 % (36.0-47.0); HEMOGLOBIN 4.8 g/dL (12.0-15.5)
[2019-10-02 06:33] LABS: ABSOLUTE LYMPHOCYTES# (MANUAL) 0.2 10^3/uL (0.5-4.7); ABSOLUTE MONOCYTES # (MANUAL) 0.2 10^3/uL (0.1-1.4); BAND NEUTROPHILS % (MANUAL) 2 % (3-5); BASOPHILS % (MANUAL) 1 % (0-2); EOSINOPHILS % (MANUAL) 0 % (0-6); LYMPHOCYTES % (MANUAL) 3 % (13-45); MONOCYTES % (MANUAL) 3 % (3-13); SEGMENTED NEUTROPHILS % (MAN) 91 % (42-78); TOTAL CELLS COUNTED 100
[2019-10-02 06:34] LABS: PLATELET COMMENT ADEQUATE
[2019-10-02 06:35] LABS: ANISOCYTOSIS 1+
[2019-10-02 06:36] LABS: HYPOCHROMASIA SLIGHT; OVALOCYTES 1+; TEAR DROP CELLS 1+
[2019-10-02 09:07] LABS: APPEARANCE,URINE SLIGHTLY-CLOUDY; BILIRUBIN,URINE NEGATIVE (NEGATIVE); GLUCOSE, URINE NEGATIVE (NEGATIVE); KETONES,URINE NEGATIVE (NEGATIVE); LEUKOCYTE ESTERASE,URINE MODERATE (NEGATIVE); NITRITE,URINE NEGATIVE (NEGATIVE); PROTEIN,URINE 100 mg/dL (NEGATIVE); UROBILINOGEN,URINE NEGATIVE mg/dL (<2.0)
[2019-10-02 09:08] LABS: COLOR,URINE PINK
[2019-10-02] MEDS ORDERED: ALBUTEROL SULFATE HFA (90 MCG/PUFF) 8 GM MDI (1 MDI/ER DISP) IH ONE (10:00)
[2019-10-02 13:04] LABS: ABSOLUTE LYMPHOCYTES (AUTO) 0.6 10^3/uL (0.5-4.7); ABSOLUTE MONOCYTES (AUTO) 0.6 10^3/uL (0.1-1.4); ABSOLUTE NEUT (AUTO) 5.1 10^3/uL (1.7-8.2); BASOPHILS % (AUTO) 0.5 % (0-2); EOSINOPHILS % (AUTO) 0.7 % (0-6); HEMATOCRIT 22.7 % (36.0-47.0); LYMPHOCYTES % (AUTO) 9.4 % (13-45); MEAN CORPUSCULAR HEMOGLOBIN 29.9 pg (27.0-33.4); MEAN CORPUSCULAR HGB CONC 33.2 g/dL (32.0-36.0); MEAN CORPUSCULAR VOLUME 90 fl (80-97); MONOCYTES % (AUTO) 9.9 % (3-13); PLATELET COUNT 190 10^3/uL (150-450); RED BLOOD COUNT 2.52 10^6/uL (3.72-5.28); SEGMENTED NEUTROPHILS % (AUTO) 79.5 % (42-78); TOTAL CELLS COUNTED % (AUTO) 100 %; WHITE BLOOD COUNT 6.5 10^3/uL (4.0-10.5)
[2019-10-02 13:06] LABS: HEMOGLOBIN 7.5 g/dL (12.0-15.5)
[2019-10-02] MEDS ORDERED: MEDROXYPROGESTERONE ACET 10 MG TABLET PO ONE (13:31)
[2019-10-02 14:13] VITALS: BP 132/80
--- NOTE | 2019-10-02 22:40 | EKG REPORT ---
SEVERITY:- ABNORMAL ECG - SINUS TACHYCARDIA NONSPECIFIC REPOL ABNORMALITY, DIFFUSE LEADS [facility] : Confirmed by: Mary Ann Hernandez 02-Oct-2019 22:39:19
== END 2019-10-02 14:33 | disposition home or self-care (01) ==
LOC: ER 02:28
DX: N93.8 Other specified abnormal uterine and vaginal bleeding (principal); D62 Acute posthemorrhagic anemia; D25.9 Leiomyoma of uterus, unspecified; R06.02 Shortness of breath; Z88.3 Allergy status to other anti-infective agents; Z88.2 Allergy status to sulfonamides; F41.9 Anxiety disorder, unspecified
CPT/HCPCS: 93005; 86900; 86901; 36415; 36430; 86850; 85025; 81001; 86920; 93010; P9016; J3490 ×2; J7050; 96360; 96361; 99285

== ENCOUNTER 2019-10-02 22:17 | Emergency (ER) | payer SELFPAY ==
[2019-10-02 22:32] VITALS: BP 164/87
--- NOTE | 2019-10-02 22:55 | ER Document Report ---
ED Medical Screen (RME) - General Stated Complaint: VAGINAL BLEEDING Time Seen by Provider: 10/02/19 22:47 Notes: Patient is a 49-year-old female who presents to the emergency department with vaginal bleeding. Patient was seen earlier today with a low hemoglobin and h ematocrit and was transfused blood. Patient went to [facility] and was given Norethindrome. He states that she took 1 pill and then she started bleeding again. He states that she went through 2 pads in about 5 hours. Exam: Pale in color. I have greeted and performed a rapid initial assessment of this patient. A comprehensive ED assessment and evaluation of the patient, analysis of test results and completion of medical decision making process will be conducted by an additional ED providers. TRAVEL OUTSIDE OF THE [place] IN LAST 30 DAYS: No - Related Data Allergies/Adverse Reactions: NSAIDS (Non-Steroidal Anti-Inflamma Allergy (Severe, Verified 10/02/19 03:26) ciprofloxacin [From Cipro] Allergy (Verified 10/02/19 03:26) Sulfa (Sulfonamide Antibiotics) Adverse Reaction (Verified 10/02/19 03:26) Past Medical History Pulmonary Medical History: Reports: Hx Asthma, Hx Pneumonia Psychiatric Medical History: Reports: Hx Anxiety, Hx Bipolar Disorder - Immunizations Immunizations up to date: No Physical Exam - Vital signs Vitals: Temp Pulse Resp BP Pulse Ox 98.1 F 124 H 16 164/87 H 100 10/02/19 22:30 10/02/19 22:30 10/02/19 22:30 10/02/19 22:30 10/02/19 22:30 Course - Vital Signs Vital signs: Temp Pulse Resp BP Pulse Ox 98.1 F 124 H 16 164/87 H 100 10/02/19 22:30 10/02/19 22:30 10/02/19 22:30 10/02/19 22:30 10/02/19 22:30
[2019-10-02 23:16] LABS: ABSOLUTE LYMPHOCYTES (AUTO) 0.7 10^3/uL (0.5-4.7); ABSOLUTE MONOCYTES (AUTO) 0.9 10^3/uL (0.1-1.4); ABSOLUTE NEUT (AUTO) 8.6 10^3/uL (1.7-8.2); BASOPHILS % (AUTO) 0.3 % (0-2); EOSINOPHILS % (AUTO) 0.3 % (0-6); HEMATOCRIT 26.5 % (36.0-47.0); HEMOGLOBIN 8.9 g/dL (12.0-15.5); LYMPHOCYTES % (AUTO) 6.4 % (13-45); MEAN CORPUSCULAR HEMOGLOBIN 30.2 pg (27.0-33.4); MEAN CORPUSCULAR HGB CONC 33.5 g/dL (32.0-36.0); MEAN CORPUSCULAR VOLUME 90 fl (80-97); PLATELET COUNT 269 10^3/uL (150-450); RED BLOOD COUNT 2.94 10^6/uL (3.72-5.28); RED CELL DISTRIBUTION WIDTH 18.4 % (11.5-14.0); TOTAL CELLS COUNTED % (AUTO) 100 %; WHITE BLOOD COUNT 10.3 10^3/uL (4.0-10.5)
== END 2019-10-03 00:30 | disposition left against medical advice (07) ==
LOC: ER 22:17
DX: N93.8 Other specified abnormal uterine and vaginal bleeding (principal); Z88.2 Allergy status to sulfonamides; Z88.3 Allergy status to other anti-infective agents
CPT/HCPCS: 36415; 99281